=== PATIENT | male | born 1980 | race Caucasian/White ===

== ENCOUNTER 2018-01-28 19:22 | Emergency (ER) | payer SELFPAY ==
[~2018-01-28] VITALS: Ht 172.7 cm; Wt 70.9 kg
[2018-01-28 19:43] VITALS: BP 142/84
[2018-01-28] MEDS ORDERED: TETanus/Pertussis (Acell)/Diphther VAC/PF (Tdap-Adult) 0.5ml syringe IM ONE (21:55)
[2018-01-28] MEDS ORDERED: LIDOcaine 1% 30ml preserv. free vial IJ ONE (21:55)
== END 2018-01-28 22:47 | disposition home or self-care (01) ==
LOC: ER 19:23
DX: S61.216A Laceration without foreign body of right little finger without damage to nail, initial encounter (principal); F17.200 Nicotine dependence, unspecified, uncomplicated; W26.1XXA Contact with sword or dagger, initial encounter; Y93.89 Activity, other specified; Y92.89 Other specified places as the place of occurrence of the external cause; Y99.8 Other external cause status
CPT/HCPCS: 12002; 90471; 90715; 99283; A6222; J3490

== ENCOUNTER 2018-02-04 08:11 | Emergency (ER) | payer SELFPAY ==
[~2018-02-04] VITALS: Ht 177.8 cm; Wt 70.0 kg
[2018-02-04 08:21] VITALS: BP 153/96
[2018-02-04] MEDS ORDERED: CEPH-571 PO (08:37)
== END 2018-02-04 09:12 | disposition home or self-care (01) ==
LOC: ER 08:11
DX: S61.216D Laceration without foreign body of right little finger without damage to nail, subsequent encounter (principal); W26.1XXD Contact with sword or dagger, subsequent encounter; Z79.899 Other long term (current) drug therapy
CPT/HCPCS: 99283; A6402